=== PATIENT | female | born 1975 | race Caucasian/White ===

== ENCOUNTER 2016-11-02 08:48 | Emergency (ER) | payer OTHER ==
[2016-11-02 09:02] VITALS: BP 110/69; PULSE 106; RESP 20; TEMP 98.1; O2SAT 100
--- NOTE | 2016-11-02 09:33 | C.PDOC ---
History Of Present Illness 41 yr old female presents to the ER stating last night she slept on the floor and woke up this morning with itchiness and itchy spots to the bilateral arms, neck and right eye. Patient denies fever, vision changes, tearing, SOB, pain, weakness or numbness. Time Seen by Provider: 11/02/16 09:08 Chief Complaint (Nursing): Eye Problem History Per: Patient History/Exam Limitations: no limitations Onset/Duration Of Symptoms: Sudden Onset (Upon waking up ) Current Symptoms Are (Timing): Still Present Past Medical History Reviewed: Historical Data, Nursing Documentation, Vital Signs Vital Signs: Last Vital Signs Temp 98.1 F 11/02/16 08:57 Pulse 106 H 11/02/16 08:57 Resp 20 11/02/16 08:57 BP 110/69 11/02/16 08:57 Pulse Ox 100 11/02/16 10:03 Family History: States: No Known Family Hx - Social History Hx Alcohol Use: No Hx Substance Use: No Review Of Systems Except As Marked, All Systems Reviewed And Found Negative. Constitutional: Negative for: Fever Eyes: Positive for: Other ((+) Itchiness to the right eye. (-) No tearing. ). Negative for: Pain, Vision Change Respiratory: Negative for: Shortness of Breath Musculoskeletal: Positive for: Other ((+) Itchy spots to bilateral arms and neck ) Neurological: Negative for: Weakness, Numbness Physical Exam - Physical Exam Appears: Non-toxic, No Acute Distress Skin: Warm, Dry, Other ((+) Hives to bilateral arms. ) Head: Atraumatic, Normacephalic Eye(s): bilateral: PERRL, EOMI, right: Other (Mild periorbital swelling ) Ear(s): Bilateral: Normal Oral Mucosa: Moist Throat: Normal, No Erythema, No Exudate Chest: Symmetrical, No Tenderness Cardiovascular: Rhythm Regular, No Murmur Respiratory: Normal Breath Sounds, No Rales, No Rhonchi, No Wheezing Extremity: Normal ROM, No Swelling Neurological/Psych: Oriented x3, Normal Speech, Normal Motor ED Course And Treatment O2 Sat by Pulse Oximetry: 100 (on RA) Pulse Ox Interpretation: Normal Medical Decision Making Medical Decision Making: PLAN: * Benadryl PO * Prednisone PO Disposition - Disposition Referrals: [facility] at [facility] [Outside] Disposition: HOME/ ROUTINE Disposition Time: 10:01 Condition: GOOD Additional Instructions: Follow up with the medical doctor within 1-2 days. Return if worsened, Prescriptions: DiphenhydrAMINE [Benadryl] 25 mg PO Q4H PRN #30 cap PRN Reason: Itching / Pruritus predniSONE [Prednisone] 20 mg PO BID #10 tab Instructions: Urticaria (ED) - Clinical Impression Clinical Impression: Urticaria - PA / [employer] / Resident Statement MD/DO has reviewed & agrees with the documentation as recorded. - Scribe Statement The provider has reviewed the documentation as recorded by the Scribe Landy Sanchez All medical record entries made by the Dorothyibbrenda were at my direction and personally dictated by me. I have reviewed the chart and agree that the record accurately reflects my personal performance of the history, physical exam, medical decision making, and the department course for this patient. I have also personally directed, reviewed, and agree with the discharge instructions and disposition.
== END 2016-11-02 10:05 | disposition home or self-care (01) ==
LOC: C.ER 08:48
DX: L50.9 Urticaria, unspecified (principal)